=== PATIENT | female | born 1980 | race Caucasian/White ===

== ENCOUNTER → 2016-04-15 | Outpatient (CLI) | payer OTHER ==
[~2016-04-15] MED LIST: ACETAMINOPHEN-1 EAC1 PO; ASPIRIN CHEWABL81 MG PO; IBUPROFEN800 MG PO; LEVAQUIN TAB 5500 MG PO; METOPROLOL TART25 MG PO
== END ==
LOC: LAB 15:02
DX: R00.2 Palpitations (principal); R00.0 Tachycardia, unspecified
CPT/HCPCS: 36415; 84439; 84443

== ENCOUNTER → 2016-06-10 | Outpatient (CLI) | payer OTHER ==
[2016-06-10 16:49] LABS: HEMOGLOBIN 13.9 gm/dl (12.3-15.3); RED BLOOD COUNT 4.12 M/UL (4.00-5.10); WHITE BLOOD COUNT 8.8 K/UL (4.5-11.0)
[2016-06-10 17:21] LABS: BUN/CREATININE RATIO 16 (0-10)
== END ==
LOC: LAB 15:34
PROVIDERS: Internal Medicine Cardiovascular Disease
DX: I47.1 Supraventricular tachycardia (principal); R00.2 Palpitations; I48.92 Unspecified atrial flutter
CPT/HCPCS: 36415; 71020; 80048; 85025

== ENCOUNTER 2016-06-11 06:55 | Outpatient (CLI) | payer OTHER ==
[~2016-06-11] VITALS: Ht 152.4 cm; Wt 54.0 kg
[2016-06-11] MEDS ORDERED: IBUPROFEN800 MG PO (07:29)
[2016-06-11] MEDS ORDERED: ASPIRIN CHEWABL81 MG PO (07:32)
[2016-06-12] MEDS ORDERED: METOPROLOL TART25 MG PO (09:50)
[2016-06-12] MEDS ORDERED: ACETAMINOPHEN-1 EAC1 PO (09:52)
[2016-06-12] MEDS ORDERED: LEVAQUIN TAB 5500 MG PO (09:53)
== END 2016-06-12 10:35 | disposition home or self-care (01) ==
LOC: CATH 06:55 → PROG CARE 16:52 → CATH 06-12 10:35
DX: I47.1 Supraventricular tachycardia (principal); I44.2 Atrioventricular block, complete; I48.92 Unspecified atrial flutter; R00.1 Bradycardia, unspecified; F17.210 Nicotine dependence, cigarettes, uncomplicated; E78.5 Hyperlipidemia, unspecified; F41.9 Anxiety disorder, unspecified; B19.20 Unspecified viral hepatitis C without hepatic coma; Z88.8 Allergy status to other drugs, medicaments and biological substances; Z79.82 Long term (current) use of aspirin; Z79.1 Long term (current) use of non-steroidal anti-inflammatories (NSAID)
CPT/HCPCS: 33208; 93005; 93609; 93621; 93623; C1730; C1733; C1766; C1785; C1898; J0461; J1200; J1644; J2250; J2270; J3010; J3370; J7040; J7050; J7070

== ENCOUNTER 2020-04-23 11:12 | Emergency (ER) | payer OTHER ==
[~2020-04-23 11:12] MED LIST changes: +BENADRYL 25MG C25 MG PO; +MEDROL4 MG PO
[2020-04-23] MEDS ORDERED: PERCOCET 5/325 T1 EA PO (13:37)
== END 2020-04-23 14:28 | disposition home or self-care (01) ==
LOC: ER1 11:12
DX: S82.842A Displaced bimalleolar fracture of left lower leg, initial encounter for closed fracture (principal); F17.210 Nicotine dependence, cigarettes, uncomplicated; Z23 Encounter for immunization; Z88.8 Allergy status to other drugs, medicaments and biological substances; Z95.0 Presence of cardiac pacemaker; W18.40XA Slipping, tripping and stumbling without falling, unspecified, initial encounter
CPT/HCPCS: 27810; 29515; 73610; 90471; 90715; 93005; 94760; 96374; 96375; 99152; 99283; J2270; J2405; J2704

== ENCOUNTER → 2020-05-08 | Outpatient (CLI) | payer OTHER ==
[~2020-05-08] MED LIST changes: +HYDROCODON-ACE1 EAC6 PO; +PERCOCET 5/325 T1 EA PO; +SULFAMETHOXAZO1 EACH PO; +VITAMIN D31250 MCG PO
== END ==
LOC: KOH-I 15:40
DX: S82.832A Other fracture of upper and lower end of left fibula, initial encounter for closed fracture (principal)
CPT/HCPCS: 73610

== ENCOUNTER 2020-05-10 08:24 | Day surgery (SDC) | payer OTHER ==
[~2020-05-10] VITALS: Ht 152.4 cm; Wt 62.1 kg
[~2020-05-10 08:24] MED LIST changes: -HYDROCODON-ACE1 EAC6 PO; -SULFAMETHOXAZO1 EACH PO; -VITAMIN D31250 MCG PO
[2020-05-10] MEDS ORDERED: SULFAMETHOXAZO1 EACH PO (09:11)
[2020-05-10] MEDS ORDERED: HYDROCODON-ACE1 EAC6 PO (09:11)
[2020-05-10 09:23] LABS: HEMOGLOBIN 12.1 gm/dl (12.3-15.3); RED BLOOD COUNT 3.68 M/UL (4.00-5.10); WHITE BLOOD COUNT 9.4 K/UL (4.5-11.0)
[2020-05-11 03:32] LABS: WHITE BLOOD COUNT 9.2 K/UL (4.5-11.0)
[2020-05-11 03:35] LABS: HEMOGLOBIN 10.1 gm/dl (12.3-15.3); RED BLOOD COUNT 3.1 M/UL (4.00-5.10)
[2020-05-11 03:43] LABS: BUN/CREATININE RATIO 28 (0-10)
[2020-05-11] MEDS ORDERED: VITAMIN D31250 MCG PO (12:05)
== END 2020-05-11 13:48 | disposition home or self-care (01) ==
LOC: OR 08:24 → M/S 08:24 → OR 13:45 → M/S 19:58 → OR 05-11 13:48
PROVIDERS: Internal Medicine; Podiatrist Foot & Ankle Surgery
DX: S82.852A Displaced trimalleolar fracture of left lower leg, initial encounter for closed fracture (principal); S91.002A Unspecified open wound, left ankle, initial encounter; I96 Gangrene, not elsewhere classified; I11.0 Hypertensive heart disease with heart failure; I50.9 Heart failure, unspecified; F17.210 Nicotine dependence, cigarettes, uncomplicated; Z95.0 Presence of cardiac pacemaker; Z88.8 Allergy status to other drugs, medicaments and biological substances; Z79.2 Long term (current) use of antibiotics; Z79.891 Long term (current) use of opiate analgesic; W01.0XXA Fall on same level from slipping, tripping and stumbling without subsequent striking against object, initial encounter; Y99.0 Civilian activity done for income or pay
CPT/HCPCS: 36415; 73610; 76000; 80048; 85025; 85027; 87070; 87205; 93005; C1713; C1769; J0690; J1100; J1650; J1885; J2001; J2185; J2250; J2270; J2405; J2550; J2704; J2795; J3010; J3370; J7070; J7120; Q4133

== ENCOUNTER → 2020-05-30 | Outpatient (CLI) | payer OTHER ==
[~2020-05-30] MED LIST changes: +HYDROCODON-ACE1 EAC6 PO; +SULFAMETHOXAZO1 EACH PO; +VITAMIN D31250 MCG PO
== END ==
LOC: KOH-I 10:05
DX: Z47.89 Encounter for other orthopedic aftercare (principal)
CPT/HCPCS: 73610

== ENCOUNTER → 2020-06-08 | Outpatient (CLI) | payer OTHER | LOC: KOH-I 10:20 | DX: S82.891D Other fracture of right lower leg, subsequent encounter for closed fracture with routine healing (principal) | CPT/HCPCS: 73610 ==

== ENCOUNTER → 2020-06-20 | Outpatient (CLI) | payer OTHER | LOC: KOH-I 10:47 | DX: S82.852A Displaced trimalleolar fracture of left lower leg, initial encounter for closed fracture (principal) | CPT/HCPCS: 73610 ==

== ENCOUNTER → 2020-07-04 | Outpatient (CLI) | payer OTHER | LOC: KOH-I 10:24 | DX: S82.852A Displaced trimalleolar fracture of left lower leg, initial encounter for closed fracture (principal); S82.52XD Displaced fracture of medial malleolus of left tibia, subsequent encounter for closed fracture with routine healing | CPT/HCPCS: 73610 ==

== ENCOUNTER → 2020-07-12 | Outpatient (CLI) | payer OTHER | LOC: KOH-I 13:22 | DX: S82.891K Other fracture of right lower leg, subsequent encounter for closed fracture with nonunion (principal) | CPT/HCPCS: 73700 ==

== ENCOUNTER → 2020-08-01 | Outpatient (CLI) | payer OTHER | LOC: KOH-I 09:23 | DX: S82.892D Other fracture of left lower leg, subsequent encounter for closed fracture with routine healing (principal) | CPT/HCPCS: 73610 ==

== ENCOUNTER 2020-08-08 07:06 | Emergency (ER) | payer OTHER ==
[2020-08-08] MEDS ORDERED: PERCOCET 5/325 T1 EA PO (09:53)
== END 2020-08-08 09:56 | disposition home or self-care (01) ==
LOC: ER1 07:06
DX: M25.572 Pain in left ankle and joints of left foot (principal); Z48.89 Encounter for other specified surgical aftercare
CPT/HCPCS: 73610; 73630; 99283

== ENCOUNTER → 2020-08-28 | Outpatient (CLI) | payer OTHER ==
[~2020-08-28] MED LIST changes: +GABAPENTIN100 MG PO; +GABAPENTIN600 MG PO; +IBU800 MG PO
== END ==
LOC: KOH-I 09:09
DX: S82.852A Displaced trimalleolar fracture of left lower leg, initial encounter for closed fracture (principal)
CPT/HCPCS: 73610

== ENCOUNTER → 2020-09-18 | Outpatient (CLI) | payer OTHER | LOC: KOH-I 08:56 | DX: M85.872 Other specified disorders of bone density and structure, left ankle and foot (principal) | CPT/HCPCS: 73610 ==

== ENCOUNTER → 2020-10-03 | Outpatient (CLI) | payer OTHER ==
[2020-10-03 09:53] LABS: HEMOGLOBIN 12.4 gm/dl (12.3-15.3); RED BLOOD COUNT 3.95 M/UL (4.00-5.10); WHITE BLOOD COUNT 11.5 K/UL (4.5-11.0)
== END ==
LOC: OPSV2 09-27 12:00
PROVIDERS: Podiatrist Foot & Ankle Surgery
DX: Z01.818 Encounter for other preprocedural examination (principal)
CPT/HCPCS: 36415; 85027; 93005

== ENCOUNTER → 2020-10-06 | Day surgery (SDC) | payer OTHER | END | disposition home or self-care (01) | LOC: OR 07:02 | DX: T84.84XA Pain due to internal orthopedic prosthetic devices, implants and grafts, initial encounter (principal); T84.82XA Fibrosis due to internal orthopedic prosthetic devices, implants and grafts, initial encounter; M21.6X2 Other acquired deformities of left foot; S82.852A Displaced trimalleolar fracture of left lower leg, initial encounter for closed fracture; M19.172 Post-traumatic osteoarthritis, left ankle and foot; G89.18 Other acute postprocedural pain; Z95.0 Presence of cardiac pacemaker; F17.210 Nicotine dependence, cigarettes, uncomplicated; I10 Essential (primary) hypertension; Z88.8 Allergy status to other drugs, medicaments and biological substances; Z98.51 Tubal ligation status; Z20.822 Contact with and (suspected) exposure to COVID-19 | CPT/HCPCS: 73630; 76000; C1713; J0690; J0702; J1100; J1170; J1885; J2001; J2250; J2405; J2704; J2795; J3010; J3301; J3370; J7120 ==

== ENCOUNTER 2020-10-24 17:50 | Emergency (ER) | payer OTHER ==
[2020-10-24 19:50] LABS: HEMOGLOBIN 12.5 gm/dl (12.3-15.3); RED BLOOD COUNT 4.05 M/UL (4.00-5.10); WHITE BLOOD COUNT 8.2 K/UL (4.5-11.0)
[2020-10-24 20:32] LABS: BUN/CREATININE RATIO 30 (0-10)
== END 2020-10-24 20:30 | disposition home or self-care (01) ==
LOC: ER1 17:50
PROVIDERS: Physician Assistant
DX: M25.572 Pain in left ankle and joints of left foot (principal); M79.89 Other specified soft tissue disorders; Z88.1 Allergy status to other antibiotic agents; F17.200 Nicotine dependence, unspecified, uncomplicated; Z95.0 Presence of cardiac pacemaker
CPT/HCPCS: 73610; 80053; 85025; 85652; 86140; 99283

== ENCOUNTER → 2021-01-16 | Outpatient (CLI) | payer OTHER | LOC: KOH-I 09:17 | DX: M25.572 Pain in left ankle and joints of left foot (principal) | CPT/HCPCS: 73610 ==

== ENCOUNTER → 2021-02-27 | Outpatient (CLI) | payer OTHER | LOC: KOH-I 09:13 | DX: S82.852D Displaced trimalleolar fracture of left lower leg, subsequent encounter for closed fracture with routine healing (principal) | CPT/HCPCS: 73610 ==

== ENCOUNTER → 2021-04-23 | Outpatient (CLI) | payer OTHER | LOC: KOH-I 14:17 | DX: S82.852D Displaced trimalleolar fracture of left lower leg, subsequent encounter for closed fracture with routine healing (principal) | CPT/HCPCS: 73610 ==

== ENCOUNTER 2021-07-19 15:29 | Emergency (ER) | payer SELFPAY | END 2021-07-19 16:32 | disposition left against medical advice (07) | LOC: ER1 15:29 | DX: Z53.21 Procedure and treatment not carried out due to patient leaving prior to being seen by health care provider (principal) ==

== ENCOUNTER → 2021-11-12 | Outpatient (CLI) | payer OTHER | LOC: KOH-I 14:45 | DX: S82.852A Displaced trimalleolar fracture of left lower leg, initial encounter for closed fracture (principal); M19.072 Primary osteoarthritis, left ankle and foot | CPT/HCPCS: 73610 ==